=== PATIENT | male | born 1950 | race Caucasian/White ===

== ENCOUNTER 2022-07-13 17:29 | Emergency (ER) | payer MEDICARE ==
[2022-07-13] MEDS ORDERED: Bacitracin 1 PK ONE (18:57)
[2022-07-13] MEDS ORDERED: Boostrix 0.5 ML (Tdap) VIAL (>/=7 yrs of age) ONE (19:05)
== END 2022-07-13 19:10 | disposition home or self-care (01) ==
LOC: ERS 17:29
DX: S01.81XA Laceration without foreign body of other part of head, initial encounter (principal); E78.5 Hyperlipidemia, unspecified; I10 Essential (primary) hypertension; W18.30XA Fall on same level, unspecified, initial encounter; Z79.899 Other long term (current) drug therapy
CPT/HCPCS: 12011; 70150; 90471; 90715